=== PATIENT | female | born 2000 ===

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

== ENCOUNTER → 2024-01-09 | Outpatient (CLI) | payer OTHER ==
[2024-01-11 09:59] LABS: C. TRACHOMATIS BY TMA Negative (Negative); N. GONORRHOEAE BY TMA Negative (Negative); SPECIMEN SOURCE Urine
[2024-01-12 01:56] LABS: APTIMA MEDIA TYPE Urine
== END | disposition home or self-care (01) ==
LOC: LAB SHORT 13:47 → LAB 13:47
PROVIDERS: Advanced Practice Midwife
DX: Z11.3 Encounter for screening for infections with a predominantly sexual mode of transmission (principal)
CPT/HCPCS: 87491; 87591

== ENCOUNTER 2024-05-01 07:25 | Inpatient (IN) | payer OTHER ==
[~2024-05-01] VITALS: Ht 165.1 cm; Wt 81.6 kg
[2024-05-01] VITALS (29 sets, daily range): BP systolic 105–175; BP diastolic 62–104
[2024-05-01] MEDS ORDERED: Acetaminophen 500 MG Tab PO PRN (08:05)
[2024-05-01] MEDS ORDERED: Oxytocin 10 Unit / ML Vial IM PRN (08:05)
[2024-05-01] MEDS ORDERED: Methylergonovine Maleate 0.2MG / ML 1ML Amp IM PRN ×2 (08:05→15:20)
[2024-05-01] MEDS ORDERED: Carboprost Tromethamine 250 MCG/ML 1ML Amp IM PRN (08:05)
[2024-05-01] MEDS ORDERED: Tranexamic Acid 100 ML IV SCH (08:05)
[2024-05-01] MEDS ORDERED: Lactated Ringer's 1,000 ML IV PRN (08:05)
[2024-05-01] MEDS ORDERED: Misoprostol 200 MCG Tab PR PRN (08:05)
[2024-05-01] MEDS ORDERED: Penicillin G Potassium 5,000,000 UNITS in NS 250 ML IV ONE (08:05)
[2024-05-01] MEDS ORDERED: Misoprostol 200 MCG Tab BC PRN (08:05)
[2024-05-01] MEDS ORDERED: Ondansetron HCl 2 MG / ML 2ML Vial IV PRN (08:05)
[2024-05-01] MEDS ORDERED: OXYTOCIN/RINGER'S LACTATE 500 ML IV PRN (08:05)
[2024-05-01] MEDS ORDERED: ePHEDrine Sulfate 50 MG/ML 1ML Injection XX PRN (08:15)
[2024-05-01] MEDS ORDERED: FentaNYL Citrate 50 MCG/ML 2 ML Injection IV ONE (08:15)
[2024-05-01] MEDS ORDERED: Lactated Ringer's 1,000 ML IV SCH ×3 (08:15→15:20)
[2024-05-01] MEDS ORDERED: FentaNYL 2mcg/ml-Bup 0.1% Epd 250 ML EPI PRN (08:15)
[2024-05-01] MEDS ORDERED: OXYTOCIN/RINGER'S LACTATE 500 ML IV ONE (08:19)
[2024-05-01] MEDS ORDERED: Lactated Ringer's 1,000 ML IV ONE (08:19)
[2024-05-01 08:27] LABS: BASOPHILS ABSOLUTE AUTO 0.09 K/mm3 (0.00-0.23); BASOPHILS PERCENT AUTO 1 % (0-2); EOSINOPHILS ABSOLUTE AUTO 0.14 K/mm3 (0.00-0.68); EOSINOPHILS PERCENT AUTO 1 % (0-6); Hemoglobin 12.3 g/dL (11.5-16.0); IMMATURE GRAN ABSOLUTE AUTO 0.12 K/mm3 (0.00-0.10); IMMATURE GRAN PERCENT AUTO 1 % (0-1); LYMPHOCYTES ABSOLUTE AUTO 2.83 K/mm3 (0.84-5.20); LYMPHOCYTES PERCENT AUTO 21 % (21-46); MONOCYTES ABSOLUTE AUTO 0.75 K/mm3 (0.16-1.47); MONOCYTES PERCENT AUTO 6 % (4-13); Mean Corpuscular HGB 26.4 pg (26.0-34.0); Mean Corpuscular HGB Conc 32.4 g/dL (31.5-36.5); Mean Corpuscular Volume 82 fL (80-100); Mean Platelet Volume 11.7 fL (9.1-12.4); NEUTROPHILS ABSOLUTE AUTO 9.43 K/mm3 (1.96-9.15); NEUTROPHILS PERCENT AUTO 71 % (41-73); Platelet Count 352 K/mm3 (150-400); RDW Coefficient Variation 14.1 % (11.7-14.2); RDW Standard Deviation 40.4 fL (35.1-46.3); Red Blood Cell Count 4.66 M/mm3 (3.80-5.20); White Blood Cell Count 13.36 K/mm3 (4.00-11.30)
[2024-05-01] MEDS ORDERED: Penicillin G Potassium 2,500,000 UNITS in Dextrose 5% 100 ML IV SCH (12:00)
[2024-05-01] MEDS ORDERED: Calcium Carbonate 500 MG Tab Chew PO SCH (12:00)
[2024-05-01] MEDS ORDERED: Witch Hazel/Glycerin PADS TOP PRN (15:15)
[2024-05-01] MEDS ORDERED: Acetaminophen 325 MG TABLET PO PRN (15:15)
[2024-05-01] MEDS ORDERED: FLU VACC TS2024-25(6MOS UP)/PF 45 MCG/0.5 ML SYRINGE IM PRN (15:15)
[2024-05-01] MEDS ORDERED: Ibuprofen 400 MG Tab PO PRN (15:15)
[2024-05-01] MEDS ORDERED: Benzocaine Topical Anesthetic Spray 60GM TOP PRN (15:20)
[2024-05-01] MEDS ORDERED: Ketorolac Tromethamine 30mg Vial IV PRN (15:20)
[2024-05-01] MEDS ORDERED: Lanolin Cream TOP PRN (15:20)
[2024-05-01] MEDS ORDERED: Docusate Sodium 100 MG Cap PO PRN (15:20)
[2024-05-01] MEDS ORDERED: OXYTOCIN/RINGER'S LACTATE 500 ML IV SCH (15:25)
--- NOTE | 2024-05-01 18:07 | NUR ---
rt leg is still heavy, not safe to get in shower, but was able to get her to the toilet to do tiffany care, pt voided and clean up with baby wipes, pt aware will have to shower later when leg less numb. pt is aware she cannot get out of bed with out rn assistance, icepack and tiffany meds with pad change done
[2024-05-01] MEDS ORDERED: Calcium Carbonate 500 MG Tab Chew PO PRN (21:05)
--- NOTE | 2024-05-02 04:03 | NUR ---
pt requested a tiffany ice iris.no further needs at this time.
[2024-05-02 05:14] VITALS: BP 135/84
[2024-05-02 08:13] VITALS: BP 132/87
[2024-05-02] MEDS ORDERED: Prenatal Vit/FE Fumarate/FA 1 Tab PO SCH (09:00)
[2024-05-02 11:50] VITALS: BP 138/76
[2024-05-02] MEDS ORDERED: IBUP800 PO (15:26)
--- NOTE | 2024-05-02 17:14 | NUR ---
Printed d/c instructions and teaching reviewed w/pt and SO. Questions answered to their satisfaction. Verbalized understanding of teaching and follow up. Will prepare for d/c home when done .
[2024-05-02 17:22] VITALS: BP 147/95
--- NOTE | 2024-05-02 17:30 | NUR ---
NO acute changes t/o shift. ID bands matched w/nb. Pt d/c'd home ambulatory to care of SO.
[2024-05-02 17:33] VITALS: BP 138/74
== END 2024-05-02 17:45 | disposition home or self-care (01) | DRG 807 ==
LOC: OBS 07:25 → BC 07:25 → OBS 08:17 → BC 08:18
PROVIDERS: ADMIT Advanced Practice Midwife
PROC: 10E0XZZ Delivery of Products of Conception, External Approach (ICD-10-PCS; principal; 2024-05-01)
PROC: 00HU33Z Insertion of Infusion Device into Spinal Canal, Percutaneous Approach (ICD-10-PCS; 2024-05-01)
PROC: 3E0R3BZ Introduction of Anesthetic Agent into Spinal Canal, Percutaneous Approach (ICD-10-PCS; 2024-05-01)
DX: O48.0 Post-term pregnancy (principal); Z37.0 Single live birth; Z3A.40 40 weeks gestation of pregnancy; O99.344 Other mental disorders complicating childbirth; F41.8 Other specified anxiety disorders; O99.824 Streptococcus B carrier state complicating childbirth; O42.02 Full-term premature rupture of membranes, onset of labor within 24 hours of rupture; O77.0 Labor and delivery complicated by meconium in amniotic fluid; O70.0 First degree perineal laceration during delivery
CPT/HCPCS: 36415; 51702; 85025; 86850; 86900; 86901; A9270; J2540; J7050; J7120

== ENCOUNTER → 2024-06-14 | Outpatient (CLI) | payer OTHER ==
[~2024-06-14] MED LIST changes: +IBUP800 PO
== END ==
LOC: LAB 13:15 → LAB SHORT 13:15
PROVIDERS: Advanced Practice Midwife
DX: Z01.419 Encounter for gynecological examination (general) (routine) without abnormal findings (principal); Z97.5 Presence of (intrauterine) contraceptive device
CPT/HCPCS: G0123